=== PATIENT | male | born 1990 | race Caucasian/White ===

== ENCOUNTER 2018-03-17 15:20 | Emergency (ER) | payer SELFPAY ==
--- NOTE | 2018-03-17 16:53 | ED ---
GI/ HPI - HPI Summary HPI Summary: This pt is a 27 y/o male presenting to [facility] c/o intermittent abd pain and bloody stools for 1 year now. Pt reports that he has had blood with bowel movements, described as both bright red and dark brown. Denies fever, chills, chest pain, SOB, dizziness. He notes he was due to have a colonoscopy but ended up going to [facility]. Pt did have Crohns and colitis ruled out while in [facility]. He currently is in [facility] for [facility], he has been here for about 3 weeks. He notes he has not had alcohol since December 29, 2017. Denies drug use. He denies any PMHx. - History of Current Complaint Chief Complaint: EDAbdPain Time Seen by Provider: 03/17/18 16:45 Stated Complaint: ABD PAIN Hx Obtained From: Patient Onset/Duration: Started Weeks Ago, Still Present Timing: Intermittent, Lasting Weeks Current Severity: Moderate Pain Intensity: 7 Location of Pain: LUQ, LLQ Associated Signs and Symptoms: Positive: Bright Red Blood w/Stool, Blood w/Stool , Abdominal Pain. Negative: Dizziness, Nausea, Vomiting, Fever, Chills Aggravating Factor(s): Nothing Alleviating Factor(s): Nothing - Allergy/Home Medications Allergies/Adverse Reactions: Allergies Allergy/AdvReac Type Severity Reaction Status Date / Time No Known Allergies Allergy Verified 03/17/18 15:27 PMH/Surg Hx/FS Hx/Imm Hx Endocrine/Hematology History: Denies: Hx Diabetes Cardiovascular History: Denies: Hx Hypertension Psychiatric History: Reports: Hx Substance Abuse - Surgical History Surgery Procedure, Year, and Place: Knee surgery Infectious Disease History: No Infectious Disease History: Denies: Traveled Outside the [place] in Last 30 Days - Family History Known Family History: Negative: Cardiac Disease, Hypertension, Diabetes - Social History Alcohol Use: None Alcohol Amount: former alcoholic, last used on 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 GENERAL: Patient is a well-developed and nourished male who is lying comfortable in the stretcher. Patient is not in any acute respiratory distress. HEAD AND FACE: Normocephalic and atraumatic. EYES: PERRLA, EOMI x 2, No injected conjunctiva. EARS: Hearing grossly intact. Ear canals and tympanic membranes are WNL. MOUTH: Oropharynx within normal limits. NECK: Supple, trachea is midline, no adenopathy, no JVD. CHEST: Symmetric, no tenderness at palpation LUNGS: Clear to auscultation bilaterally. No wheezing or crackles. CVS: RRR, S1 and S2 present, no murmurs or gallops appreciated. ABDOMEN: Soft, left upper quadrant and left lower quadrant tenderness. No signs of distention. Positive bowel sounds. No rebound no guarding, and no masses palpated. No abdominal bruit or pulsations. EXTREMITIES: FROM in all major joints, no edema, no cyanosis or clubbing. RECTAL EXAM: CHELLE Plata, present as conical mixer. Normal sphincter tone. No gross blood or melena. NEURO: Alert and oriented x 3. No acute neurological deficits. Speech is normal. SKIN: Dry and warm Triage Information Reviewed: Yes Vital Signs On Initial Exam: Initial Vitals Temp Pulse Resp BP Pulse Ox 98.1 F 90 16 140/85 100 03/17/18 15:25 03/17/18 15:25 03/17/18 15:25 03/17/18 15:25 03/17/18 15:25 Vital Signs Reviewed: Yes Diagnostics - Vital Signs Vital Signs Temp Pulse Resp BP Pulse Ox 03/17/18 15:25 98.1 F 90 16 140/85 100 - Laboratory Result Diagrams: 03/17/18 16:51 03/17/18 16:51 Lab Statement: Any lab studies that have been ordered have been reviewed, and results considered in the medical decision making process. GIGU Course/Dx - Course Assessment/Plan: This pt is a 27 y/o male presenting to [facility] c/o intermittent abd pain and bloody stools for 1 year now. Pt reports that he has had blood with bowel movements, described as both bright red and dark brown. Denies fever , chills, chest pain, SOB, dizziness. He notes he was due to have a colonoscopy but ended up going to [facility]. Pt did have Crohns and colitis ruled out while in [facility]. He currently is in [facility] for [facility], he has been here for about 3 weeks. He notes he has not had alcohol since December 29, 2017. Denies drug use. He denies any PMHx. Blood work without any significant abnormality except for potassium level of 3.4. Guaiac test is negative. The patient is waiting for an abdominal/pelvic CT. At this point the patient will be signed out to Dr. Marques at shift change. He will follow up on the abdomen and pelvic CT report for further disposition of this patient. - Diagnoses Provider Diagnoses: Abdominal pain Discharge - Sign-Out/Discharge Documenting (check all that apply): Sign-Out Patient Signing out patient TO: Dorothy Marques - pending CT abdomen/pelvis - Discharge Plan Condition: Stable Disposition: HOME Referrals: [facility] – [place] [Outside] (2-3 days) Additional Instructions: Return to the ED if you experience any new or worsening symptoms. - Billing Disposition and Condition Condition: STABLE - Attestation Statements Document Initiated by Vickie: Yes Documenting Scribe: Tamara Gao Provider For Whom Vickie is Documenting (Include Credential): Sher Webb MD Scribe Attestation: Tamara Hoang scribed for Sher Webb MD on 03/18/18 at 0719. Scribe Documentation Reviewed: Yes Provider Attestation: The documentation as recorded by the Tamara sosa accurately reflects the service I personally performed and the decisions made by , Sher Webb MD Status of Scribe Document: Viewed
[2018-03-17 17:16] LABS: ABS Basophils 0 10^3/ul (0-0.2); ABS Eosinophils 0.1 10^3/ul (0-0.6); ABS Lymphocytes 2.6 10^3/ul (1.0-4.8); ABS Monocytes 0.9 10^3/ul (0-0.8); ABS Neutrophils 4.8 10^3/ul (1.5-7.7); ABS Nucleated RBC 0 10^3/ul; Eosinophil % 1.1 %; Hematocrit 45 % (42-52); Hemoglobin 15.7 g/dl (14.0-18.0); Lymphocyte % 31.1 %; Mean Corpuscular HGB Conc 35 g/dl (31-36); Mean Corpuscular Hemoglobin 31 pg (27-31); Mean Corpuscular Volume 90 fL (80-94); Mean Platelet Volume 7.8 fL (7.4-10.4); Nucleated Red Blood Cells % 0.1; Platelet Count 294 10^3/ul (150-450); Red Blood Count 5.03 10^6/ul (4.00-5.40); Red Cell Distribution Width 13 % (10.5-15); White Blood Count 8.4 10^3/ul (3.5-10.8)
[2018-03-17 17:42] LABS: ALT 15 U/L (7-52); AST 20 U/L (13-39); Albumin 4.8 g/dL (3.2-5.2); Albumin/Globulin Ratio 2.1 (1-3); Alkaline Phosphatase 74 U/L (34-104); Amylase 48 U/L (29-103); Anion Gap 6 mmol/L (2-11); BUN/Creatinine Ratio 11.7 (8-20); Blood Urea Nitrogen 11 mg/dL (6-24); C Reactive Protein < 1.00 mg/L (<8.01); CO2 Carbon Dioxide 31 mmol/L (22-32); Calcium 9.9 mg/dL (8.6-10.3); Chloride 103 mmol/L (101-111); Globulin 2.3 g/dL (2-4); Glucose 96 mg/dL (70-100); Potassium 3.4 mmol/L (3.5-5.0); Sodium 140 mmol/L (135-145); Total Protein 7.1 g/dL (6.4-8.9)
[2018-03-17] MEDS ORDERED: Iohexol 300* (CONTRAST) 10 ML SDV IV ONE (18:43)
--- NOTE | 2018-03-17 19:14 | ED ---
Progress - Progress Note Progress Note: This patient was signed out from Dr. Webb to Dr. Marques upon shift change at 19: 00 03/17/[address] abdomen/pelvis. CT abdomen/pelvis impression: no acute CT pathology. ED provider has reviewed this imaging report. The patient will be discharged. Re-Evaluation - Re-Evaluation First Eval Re-Evaluation Time: 20:18 Change: Improved Comment: Patient is feeling better. Course/Dx - Course Course Of Treatment: This patient was signed out from Dr. Webb to Dr. Marques upon shift change at 19:00 03/17/[address] abdomen/pelvis. CT abdomen/ pelvis impression: no acute CT pathology. ED provider has reviewed this imaging report. The patient will be discharged. - Diagnoses Provider Diagnoses: Abdominal pain Discharge - Sign-Out/Discharge Documenting (check all that apply): Patient Departure - DC, Receiving Sign-Out Receiving patient FROM: Sher Webb - Discharge Plan Condition: Stable Disposition: HOME Referrals: [facility] [place]Outside] (2-3 days) Additional Instructions: Return to the ED if you experience any new or worsening symptoms. - Billing Disposition and Condition Condition: STABLE Disposition: Home - Attestation Statements Document Initiated by Scribe: Yes Documenting Scribe: Andreas Dominguez Provider For Whom Vickie is Documenting (Include Credential): Dorothy Marques MD Scribe Attestation: Andreas Hoang scribed for Dorothy Marques MD on 03/18/18 at 0417. Scribe Documentation Reviewed: Yes Provider Attestation: The documentation as recorded by the Andreas sosa accurately reflects the service I personally performed and the decisions made by Jose Enrique coleman MD Status of Scribe Document: Viewed
[2018-03-17 19:45] VITALS: BP 134/87
== END 2018-03-17 20:34 | disposition home or self-care (01) ==
LOC: ED 15:20
DX: R10.9 Unspecified abdominal pain (principal)
CPT/HCPCS: 36415; 74177; 80053; 82150; 82270; 83605; 83690; 85025; 86140; 99282; Q9967

== ENCOUNTER 2018-04-17 03:11 | Observation (INO) | payer OTHER ==
[2018-04-17] MEDS ORDERED: NS 0.9% 1000 ML** 1,000 ML IV ONE (03:26)
[2018-04-17] MEDS ORDERED: Tetan/Diph/Pertus SYR(Tdap)* 0.5 ML SYR(BOOSTRIX) use SYR IM ONE (03:28)
--- OUTSIDE RECORDS SUMMARY | 2018-04-17 03:41 | XMS REPORT | Continuity of Care Document ---
:1990 External Reference #:[id number] Author Name Ale Abrams PA-C Address [address] [place] [address] [place] [address] Care Team Providers Name Role Phone Maddison Villagomez FNP Care Team Information Outside Machinist Supervisor Unavailable Lindsey Arevalo MD Primary Care Physician Unavailable Payers Date Identification Numbers Payment Provider Subscriber Policy Number: [id number] Berto Abad PayID: [id number] [address] [place] [phone] Advance Directives Description No Information Available Problems Date Description Provider Status Onset: 04/06/2018 Diarrhea Ale Abrams PA-C Active Onset: 04/06/2018 Abdominal pain Ale Abrams PA-C Active Onset: 04/06/2018 Periumbilical pain Ale Abrams PA-C Active Onset: 04/06/2018 Hemorrhage of rectum and anus Ale Abrams PA-C Active Family History Description No Information Available Social History Type Date Description Comments Sex Unknown ETOH Use Denies alcohol use currently in rehab. Prior binge drinker on the weekends Tobacco Use Start: Unknown End: Patient is a former Unknown smoker Smoking Status Reviewed: 04/06/18 Patient is a former smoker Allergies, Adverse Reactions, Alerts Description No Known Drug Allergies Medications Medication Date Status Form Strength Qnty SIG Indications Ordering Provider Trazodone HCL Active Tablets 50mg 1 Tablet Unknown 000 AT hs Prilosec OTC Active Tablets DR 20mg 1 by mouth Unknown 000 bid Colyte-Flavor Hx Solution 240gm 4000ml As K62.5 Ale [place] Packs 019 - Rec directed Jose Alberto, FRANCISCO JAVIER 019 Immunizations Description No Information Available Vital Signs Date Vital Result Comment 04/06/2018 7:54am Height 73 inches 6'1" Weight 178.00 lb BP Systolic 128 mmHg BP Diastolic 78 mmHg Heart Rate 88 /min BMI (Body Mass Index) 23.5 kg/m2 Results Test Date Facility Test Result H/L Range Note Xray 03/17/2018 [facility] [place], Abd & Pelvis W/ Contrast <pending> Procedures Description No Information Available Encounters Description No Information Available Plan of Treatment Future Appointment(s):04/30/2018 8:45 am - Lee Back DO at [facility]04/06/2018 - ANGELO Hong-CK62.5 Hemorrhage of anus and rectumNew Medication:Colyte-Flavor Packs 240 gm - As directedComments:RISKS AND BENEFITS OF THE PROCEDURE WERE DISCUSSED WITH PATIENT.R10.33 Periumbilical painR10.30 Lower abdominal pain, gefosrxgvloL35.7 Diarrhea, unspecified
--- NOTE | 2018-04-17 03:45 | ED ---
Syncope/Near Syncope - HPI Summary HPI Summary: This patient is a 27 year old male brought in by ambulance to [facility] with a chief complaint of syncope since 1-2 hours ago. Patient states that he woke up from sleeping to go to the bathroom. After he was done urinating, patients states that he developed a headache and passed out soon after. After regaining consciousness, patient attempted to go to the sink to wash up when he passed out again. Patient states that he does not remember the events directly prior and following the syncopal event. Patient affirms head trauma and LOC. Patient also presents with a small gash on his left shoulder. The pain is rated 3/10 in severity. Symptoms aggravated by nothing. Symptoms alleviated by nothing. Patient additionally reports headache. - History Of Current Complaint Time Seen by Provider: 04/17/18 03:12 Hx Obtained From: Patient Onset/Duration: Sudden Onset, Lasting Minutes, Still Present Timing: Intermittent Episode Lasting Context: Unwitnessed, Witnessed, Loss Of Consciousness Activity At Onset: At Rest Associated Head Trauma: Yes Aggravating Factor(s): Nothing Alleviating Factor(s): Nothing Associated Signs And Symptoms: Dizzy, Headache - Allergies/Home Medications Allergies/Adverse Reactions: Allergies Allergy/AdvReac Type Severity Reaction Status Date / Time No Known Allergies Allergy Verified 03/17/18 15:27 PMH/Surg Hx/FS Hx/Imm Hx Previously Healthy: Yes Endocrine/Hematology History: Denies: Hx Diabetes Cardiovascular History: Denies: Hx Hypertension History: Denies: Hx Renal Disease Psychiatric History: Reports: Hx Substance Abuse - Surgical History Surgery Procedure, Year, and Place: Knee surgery Infectious Disease History: Denies: Traveled Outside the [place] in Last 30 Days - Family History Known Family History: Negative: Cardiac Disease, Hypertension, Diabetes - Social History Occupation: Employed Part-time, Student Alcohol Use: None Alcohol Amount: former alcoholic, last used on 12/29/17 Hx Substance Use: No Substance Use Type: Reports: None Hx Tobacco Use: No Smoking Status (MU): Never Smoked Tobacco Review of Systems Negative: Fever Positive: Other - small laceration on left shoulder Positive: Headache, Syncope All Other Systems Reviewed And Are Negative: Yes Physical Exam - Summary Physical Exam Summary: VITAL SIGNS: Reviewed. GENERAL: Patient is a well-developed and nourished male who is lying comfortable in the stretcher. Patient is not in any acute respiratory distress. HEAD AND FACE: No signs of trauma. No ecchymosis, hematomas or skull depressions. No sinus tenderness. EYES: PERRLA, EOMI x 2, No injected conjunctiva, no nystagmus. EARS: Hearing grossly intact. Ear canals and tympanic membranes are within normal limits. MOUTH: Oropharynx within normal limits. NECK: Supple, trachea is midline, no adenopathy, no JVD, no carotid bruit, no c- spine tenderness, neck with full ROM. CHEST: Symmetric, no tenderness at palpation LUNGS: Clear to auscultation bilaterally. No wheezing or crackles. CVS: Regular rate, irregular rhythm, S1 and S2 present, no murmurs or gallops appreciated. ABDOMEN: Soft, non-tender. No signs of distention. No rebound no guarding, and no masses palpated. Bowel sounds are normal. EXTREMITIES: FROM in all major joints, 1 inch lac over left shoulder anteriorly NEURO: Alert and oriented x 3. No acute neurological deficits. Speech is normal and follows commands. SKIN: Dry and warm Triage Information Reviewed: Yes Vital Signs Reviewed: Yes Procedures - Laceration/Wound Repair 1 Location: chest - left Anesthesia: 2.0%, Lido Length, Depth and Shape: 1 inch lac over left shoulder anteriorly Betadine Prep?: Yes Irrigated w/ Saline (ccs): 20 Laceration/Wound Explored: clean Closure: Single Layer Debridement: moderate Suture Type: Prolene Number of Sutures: 4 Layer Closure?: No Sterile Dressing Applied?: Yes Diagnostics - Laboratory Result Diagrams: 04/17/18 03:47 04/17/18 03:47 Lab Statement: Any lab studies that have been ordered have been reviewed, and results considered in the medical decision making process. - CT CT Brain CT Interpretation Completed By: Radiologist Summary of CT Findings: CT Brain reveals, per radiologist, IMPRESSION: No acute intracranial abnormality. ED physician has reviewed this radiology report. - EKG 033 Cardiac Rate: Other Rate EKG Rhythm: Atrial Flutter - 67 BPM Summary of EKG Findings: An EKG, taken 033, reveals Atrial flutter (67 BPM), no acute ischemic changes. Course/Dx Course Of Treatment: This patient is a 27 year old male brought in by ambulance to [facility] with a chief complaint of syncope since 1-2 hours ago. Patient states that he woke up from sleeping to go to the bathroom. After he was done urinating , patients states that he developed a headache and passed out soon after. After regaining consciousness, patient attempted to go to the sink to wash up when he passed out again. Patient states that he does not remember the events directly prior and following the syncopal event. An EKG, taken 033, reveals Atrial flutter (67 BPM), no acute ischemic changes.CT Brain reveals, per radiologist, IMPRESSION: No acute intracranial abnormality. ED physician has reviewed this radiology report. Bloodwork Obtained. Urinalysis Obtained. In the ED course the patient was given NS 0.9%, Tetanus titer. We discussed patient care with Dr. Silva (Hospitalist) at 0445, who agreed to admit the patient. Patient will be admitted with new onset a fib and syncope. The patient is agreeable with this plan. - Diagnoses Provider Diagnoses: New onset atrial fibrillation, Syncope - Physician Notifications Discussed Care of Patient With: Jo Silva - Hospitalist Time Discussed With Above Provider: 04:45 - We discussed patient care with Dr. Silva (Hospitalist) at 0445, who agreed to admit the patient. Instructed by Provider To: Admit As Inpatient Discharge - Sign-Out/Discharge Documenting (check all that apply): Patient Departure Patient Received Moderate/Deep Sedation with Procedure: No - Discharge Plan Condition: Stable Disposition: ADMITTED TO [facility] Referrals: No Primary Care Phys,NOPCP [Primary Care Provider] - - Attestation Statements Document Initiated by Scribe: Yes Documenting Scribe: Annamarie Trujillo Provider For Whom Scribe is Documenting (Include Credential): Dorothy Marques MD Scribe Attestation: Annamarie Hoang, scribed for Dorothy Marques MD on 04/17/18 at 0532. Status of Scribe Document: Ready
[2018-04-17 03:54] LABS: ABS Basophils 0.1 10^3/ul (0-0.2); ABS Eosinophils 0.3 10^3/ul (0-0.6); ABS Lymphocytes 3.3 10^3/ul (1.0-4.8); ABS Monocytes 0.9 10^3/ul (0-0.8); ABS Neutrophils 3.9 10^3/ul (1.5-7.7); ABS Nucleated RBC 0 10^3/ul; Hematocrit 46 % (42-52); Hemoglobin 15.5 g/dl (14.0-18.0); Lymphocyte % 38.7 %; Mean Corpuscular HGB Conc 34 g/dl (31-36); Mean Corpuscular Hemoglobin 31 pg (27-31); Mean Corpuscular Volume 92 fL (80-94); Mean Platelet Volume 8.2 fL (7.4-10.4); Nucleated Red Blood Cells % 0; Platelet Count 260 10^3/ul (150-450); Red Blood Count 4.96 10^6/ul (4.00-5.40); Red Cell Distribution Width 13 % (10.5-15); White Blood Count 8.4 10^3/ul (3.5-10.8)
[2018-04-17 04:03] LABS: Activated Partial Thrombo Time 24.2 seconds (26.0-36.3); INR 0.93 (0.77-1.02)
[2018-04-17 04:10] LABS: ALT 22 U/L (7-52); AST 16 U/L (13-39); Albumin 4.6 g/dL (3.2-5.2); Albumin/Globulin Ratio 1.8 (1-3); Alkaline Phosphatase 68 U/L (34-104); Anion Gap 5 mmol/L (2-11); BUN/Creatinine Ratio 10.4 (8-20); Blood Urea Nitrogen 10 mg/dL (6-24); CO2 Carbon Dioxide 31 mmol/L (22-32); Calcium 9.5 mg/dL (8.6-10.3); Chloride 103 mmol/L (101-111); EGFR African American 114.6 (>60); EGFR Non-African American 94.7 (>60); Globulin 2.5 g/dL (2-4); Glucose 106 mg/dL (70-100); Magnesium 2.3 mg/dL (1.9-2.7); Potassium 3.7 mmol/L (3.5-5.0); Sodium 139 mmol/L (135-145); Total Protein 7.1 g/dL (6.4-8.9)
[2018-04-17 04:14] LABS: Alcohol < 10 mg/dL (<10)
[2018-04-17 04:30] LABS: TSH (Thyroid Stimulating Horm) 2.45 mcIU/mL (0.34-5.60)
[2018-04-17] MEDS ORDERED: Ondansetron INJ* 2 MG/ML VIAL IV PRN (05:24)
[2018-04-17] MEDS ORDERED: Al Hydrox/Mg Hydrox/Simet LIQ* 30 ML UDC PO PRN (05:24)
[2018-04-17] MEDS ORDERED: Acetaminophen TAB* 325 MG PO PRN (05:24)
[2018-04-17] MEDS ORDERED: traZODone TAB* 50 MG TAB PO PRN (05:28)
[2018-04-17] MEDS ORDERED: hydrOXYzine HCL TAB* 50 MG PO PRN (05:29)
[2018-04-17] MEDS ORDERED: Iohexol 350* (CONTRAST) 500 ML MDV IV ONE (07:02)
[2018-04-17 07:31] LABS: Urine Appearance Clear; Urine Bilirubin Negative (Negative); Urine Blood Negative (Negative); Urine Color Straw; Urine Glucose Negative (Negative); Urine Ketones Negative (Negative); Urine Nitrite Negative (Negative); Urine Protein Negative (Negative); Urine Specific Gravity 1.004 (1.010-1.030); Urine Urobilinogen Negative (Negative)
[2018-04-17 07:47] LABS: Barbiturates Urine Screen None Detected (None Detect); Benzodiazepine Urine Screen None Detected (None Detect); Urine Cannabinoids Screen None Detected (None Detect)
[2018-04-17] MEDS ORDERED: Pantoprazole TAB * 40 MG TAB PO SCH (09:00)
--- NOTE | 2018-04-17 09:15 | HP ---
HISTORY AND PHYSICAL: DATE OF ADMISSION: 04/17/18 TIME OF EVALUATION: 0500 PRIMARY CARE PHYSICIAN: The patient does not have a primary care physician. CHIEF COMPLAINT: Syncope. HISTORY OF PRESENT ILLNESS: This is a 27-year-old male with an unremarkable past medical history who presented to the emergency room from [facility] facility for 2 episodes of syncope. Patient states he was in his usual state of health. He went to get up to go pee. While he was peeing, he developed a headache, dizzy, lightheaded and he woke up and found himself on the floor. When he got up, he went to go wash his hands and again, he had another syncopal episode. Patient came into the emergency room for further evaluation. He injured his head and his right arm has a laceration. He denies any chest pain. No shortness of breath, no palpitations. He states he had a head cold recently. No fevers. He denies any history of syncope in the past. He is at [facility] for alcohol abuse. He states he started drinking when he was 13 years of age, but he has not drank since December 2017. He drinks about 3 cups of coffee per day. No illicit drug use. New Medications: He was recently started on trazodone on 03/21. Also of note, patient states about 3 weeks ago, he was having bloody stools. He saw GI and is scheduled to have a colonoscopy on 04/30/18. The bloody stools have resolved from 3 weeks ago and he does get intermittent abdominal pain, but he has had normal stools for the past 3 weeks. Patient denies any nausea or vomiting. He states he has had a good appetite. Otherwise , review of systems is negative. In the emergency room, patient had labs, imaging. He was found to be in rate-controlled AFib. He was given a Tdap, 1 L of fluid, and referred to the hospitalist service for further evaluation. PAST MEDICAL HISTORY: 1. History of alcohol abuse. 2. GERD. MEDICATIONS: 1. Vivitrol 380 mg IM monthly. 2. Vistaril 50 mg p.o. t.i.d. as needed for anxiety. 3. Omeprazole 40 mg p.o. daily. ALLERGIES: No known drug allergies. FAMILY HISTORY: Parents are alive and healthy. He thinks his mother may have some heart problems, but he is not sure. SOCIAL HISTORY: Patient has been at [facility] Facility since February 27 and plan for discharge is 05/01/18. Prior to [facility], he was incarcerated from 01/02/18 to 02/27/18. He has not smoked since January; at that time, he was smoking less than a pack per day. As mentioned, history of alcohol use since he was 13 years of age. No illicit drug use. He normally lives with his mother, who is his healthcare proxy. REVIEW OF SYSTEMS: A 14-point review of systems as mentioned in the HPI; otherwise, negative. PHYSICAL EXAMINATION GENERAL: No acute distress, resting comfortably. VITAL SIGNS: Temp 97.9, pulse 70, respiratory rate 15, oxygen saturation 100% on room air, blood pressure 132/82. HEENT: Head normocephalic. Pupils are equal and reactive. Anicteric. Oropharynx: Mucous membranes are moist. NECK: Supple. No adenopathy. RESPIRATORY: Clear to auscultation. No wheezes, rhonchi, or rales. CARDIAC: Irregularly irregular rate and rhythm. Soft systolic murmur heard throughout. ABDOMEN: Soft, nontender, nondistended. EXTREMITIES: No clubbing, cyanosis, or edema; +2 DPs. NEUROLOGIC: Alert and oriented x3. No gross focal neurologic deficits. DERM: Patient has a 4 cm laceration on his right shoulder. DIAGNOSTIC STUDIES/LAB DATA: Head CT shows no acute intracranial abnormality. EKG shows atrial fibrillation with a rate of 67. ASSESSMENT: This is a 27-year-old male with a history of alcohol abuse who presents to the emergency room with 2 syncopal episodes, found to be in atrial fibrillation. 1. Syncope. Assessment: This could be micturition syncope, though it is concerning that he has atrial fibrillation at age 27. It is possible that he has always had underlying atrial fibrillation with his history of alcohol use. I have no EKG to compare to. His trop is negative. His vitals are normal. He denies any chest pain, which is essentially low risk for a pulmonary embolism, but it is certainly on the differential. Plan: We will admit him to telemetry for observation. We will obtain an echocardiogram. Check orthostatics. We will check a D-dimer. If it is tolerated, we will pursue CTA. Continue to trend troponins. Going to consult cardiology regarding workup for further management of his atrial fibrillation. He is currently rate controlled. He is supposed to get a colonoscopy for history of bloody stools. He has a normal H and H. We will touch base with him regarding further management to see if he may be a candidate for cardioversion despite being rate controlled. He is young to stay in atrial fibrillation. His atrial fibrillation could be related to his alcohol use. 2. Chronic medical problems: We will resume his omeprazole and his Vistaril. 3. FEN. Awaiting to hear back from cardiology to determine if he would be a cardioversion candidate today. If he is, we will keep him n.p.o. If not, we will place him on a regular diet. 4. DVT prophylaxis. Patient scores a 1, low risk. We will encourage ambulation. 5. Code status. Full code. PATIENT TIME: Greater than 40 minutes were spent doing the history and physical , more than half the time spent in direct patient contact. [id number] #: [id number] JENNIFER
[2018-04-17 10:15] VITALS: BP 133/74
--- NOTE | 2018-04-17 13:27 | ECHO ---
Patient: COLLINS RODRIGUEZ [facility] Rec#: [id number] : 1990 Date: 04/17/2018 Age: 27y Height: 175 cm / 68.9 in Weight: 81.6 kg / 179.8 lbs Sex: M BSA: 1.97 Room#: [facility] Admit Date#: 04/17/2018 Type: Inpatient Referring: Jo Silva Reading: Rashad Corea DO Storeroom Supervisor: Jocelyne Lerma RDCS Transthoracic Echocardiogram Indication: Syncope BP: 105/48 HR: 65 Rhythm: NSR Findings History: ETOH use. Technical Comments: The study quality is good. Completed at 1220. Left Ventricle: The left ventricular chamber size is normal. There is no left ventricular hypertrophy. Global left ventricular wall motion and contractility are within normal limits. There is normal left ventricular systolic function. The estimated ejection fraction is 55-60%. Normal left ventricular diastolic filling is observed. Left Atrium: The left atrial chamber size is normal. Right Ventricle: The right ventricular chamber size and systolic function are within normal limits. Right Atrium: The right atrial cavity size is normal. Aortic Valve: The aortic valve is trileaflet. There is no evidence of aortic valve thickening. There is no evidence of aortic regurgitation. There is no evidence of aortic stenosis. Mitral Valve: The mitral valve leaflets do not appear thickened. There is a trace of mitral regurgitation. There is no evidence of mitral stenosis. Tricuspid Valve: The tricuspid valve leaflets are normal. There is a physiologic tricuspid regurgitation. Unable to estimate the right ventricular systolic pressure. There is no tricuspid stenosis. Pulmonic Valve: The pulmonic valve appears normal. There is a trace pulmonic regurgitation. There is no pulmonic stenosis. Pericardium: There is no significant pericardial effusion. Aorta: There is no dilatation of the ascending aorta. There is no dilatation of the aortic arch. The aortic root is normal in size. Pulmonary Artery: The main pulmonary artery is not well visualized. Venous: The inferior vena cava appears normal in size. There is a greater than 50% respiratory change in the inferior vena cava dimension. Conclusions The left ventricular chamber size is normal. There is no left ventricular hypertrophy. Global left ventricular wall motion and contractility are within normal limits. There is normal left ventricular systolic function. The estimated ejection fraction is 55-60%. The left atrial chamber size is normal. The right ventricular chamber size and systolic function are within normal limits. No significant valvular abnormalities noted None prior for comparison at time of interpretation. Measurements Name Value Normal Range RVIDd (AP) 2D 2.6 cm (0.9 - 2.6) RVDdMajor (2D) 4 cm (2.2 - 4.4) RAd ISD 4CH 4.4 cm (3.4 - 4.9) RA (A4C)W 4 cm (2.9 - 4.6) IVSd (2D) 1 cm (0.6 - 1) LVPWd (2D) 1 cm (0.6 - 1) LVIDd (2D) 4.5 cm (3.6 - 5.4) LVIDs (2D) 2.8 cm - LV FS (2D) 38 % (25 - 45) Aortic Annulus 2.3 cm (1.4 - 2.6) Ao root diameter (2D) 3 cm (2.1 - 3.5) Ascending Ao 2.8 cm (2.1 - 3.4) Aortic arch 2 cm (1.8 - 3.4) LA dimension (AP) 2D 3.2 cm (2.3 - 3.8) LAd ISD 4CH 5 cm (2.9 - 5.3) LA ISD 4CH W 4 cm (2.5 - 4.5) Name Value Normal Range LA ESV BP (A/L) index 25 ml/m2 - Name Value Normal Range MV E-wave Vmax 0.6 m/sec - MV deceleration time 225 msec - MV A-wave Vmax 0.4 m/sec - MV E:A ratio 1.6 ratio - LV septal e' Vmax 0.11 m/sec - LV lateral e' Vmax 0.17 m/sec - LV E:e' septal ratio 5.5 ratio - LV E:e' lateral ratio 3.5 ratio - Name Value Normal Range AV Vmax 1.2 m/sec - AV VTI 21 cm - AV peak gradient 5 mmHg - AV mean gradient 3 mmHg - LVOT Vmax 1 m/sec - LVOT VTI 19 cm - LVOT peak gradient 4 mmHg - LVOT mean gradient 2 mmHg - PANKAJ Vmax 1.2 m/sec - Name Value Normal Range IVC diameter 1.7 cm - Name Value Normal Range PV Vmax 0.9 m/sec - PV peak gradient 3 mmHg -
--- NOTE | 2018-04-17 14:54 | CONSULT ---
Subjective Date of Service: 04/17/18 Interval History: Admission and Consult Date: 04/17/18 Provider: Hospitalist service PRIMARY CARE PHYSICIAN: [facility] CHIEF COMPLAINT: Syncope Reason for consult: Syncope, atrial fibrillation HISTORY OF PRESENT ILLNESS: Yinka Abad is a 27-year-old man with only history being prior alcohol abuse now in remission. He had one episode before where he had an LOC episode while urinating in the middle of the night. He has been at his baseline healthy status. He had viral infection last week but recovered. Otherwise has been healthy. He got up in the middle of the night to urinate. While urinating he felt headache, dizzy and lightheaded. He woke up on the floor. He got up to wash his hands and had another LOC episode. He was found with atrial fibrillation with normal ventricular rates. He spontaneously converted to sinus rhythm. He felt no different before or after spontaneous conversion. He has no CP, dyspnea, edema. He has had some bloody stools and intermittent abdomen pain and is planned to have a c-scope 04/30. PAST MEDICAL HISTORY: 1. History of alcohol abuse in remission 2. GERD. ALLERGIES: No known drug allergies. FAMILY HISTORY: Mother has heart issues, uncertain details SOCIAL HISTORY: Patient has been at [facility] since February 27 and plan for discharge is 05/01/18. Prior to [facility], he was incarcerated from 01/02/18 to 02/27/18. He has not smoked since January; at that time, he was smoking less than a pack per day. As mentioned, history of alcohol use since he was 13 years of age. No illicit drug use. He normally lives with his mother, who is his healthcare proxy. Medications Active Medications: Acetaminophen (Tylenol Tab*) 650 mg PO Q4H PRN PRN Reason: FEVER/PAIN Al Hydrox/Mg Hydrox/Simethicone (Maalox Plus*) 30 ml PO Q6H PRN PRN Reason: INDIGESTION Hydroxyzine HCl (Atarax Tab*) 50 mg PO Q8H PRN PRN Reason: ANXIETY Ondansetron HCl (Zofran Inj*) 4 mg IV Q4H PRN PRN Reason: NAUSEA/VOMITING Pantoprazole Sodium (Protonix Tab*) 40 mg PO DAILY [facility] Last Admin: 04/17/18 07:28 Dose: 40 mg Trazodone HCl (Desyrel Tab*) 50 mg PO BEDTIME PRN PRN Reason: SLEEP Home Medications: Pantoprazole TAB * [Protonix TAB*] 40 mg PO DAILY 04/17/18 [History Confirmed ] traZODone TAB* [Desyrel TAB*] 50 mg PO BEDTIME PRN 04/17/18 [History Confirmed 04/17/18] Review of Systems - Measurements Intake and Output: Intake and Output Last 24 Hours 04/15/18 04/16/18 04/17/18 04/18/18 06:59 06:59 06:59 06:59 Intake Total 1000 Balance 1000 Weight 180 lb 180 lb Intake: IV Fluids 1000 - Review of Systems Constitutional Symptoms: Negative: Weight Gain, Weight Loss Dermatology: Negative: Rash, Skin Lesions HEENT: Negative: Change in Hearing, Vertigo Eyes: Negative: Change in Vision, Double Vision Thyroid: Negative: Cold Intolerance, Heat Intolerance, Weight Loss, Weight Gain Pulmonary: Negative: Cough, Sputum, Hemoptysis, Respiratory Distress, Shortness of Breath, Exercise Intolerance Cardiology: Positive: Faintness, Syncope Negative: Chest Pain, Shortness of Breath, Palpitations, Swelling of Ankles, Peripheral Vascular Dis, Edema, Claudication, Paroxysmal Nocturnal Dyspnea, Orthopnea Gastroenterology: Positive: Abdominal Pain Genital - Urinary: Negative: Dysuria, Hematuria Musculoskeletal: Negative: Joint Pain, Joint Stiffness Endocrinology: Negative: Obesity, Diabetes Hematologic/Lymphatic: Negative: Anemia, Hx Leukemia, Hx Lymphoma, Use of Anticoagulant, Use of Antiplatelet Drugs Neurology: Negative: Diplopia, Dizziness, Change in Speech, Change in Sphincter Function , Unexplained Weakness, Hx of Stroke\TIA Psychiatry: Negative: Unusual Anxiety, Suicidal Ideation Allergic/Immunologic: Negative: Hx HIV, Immunocompromise Review of Systems Statement: All other review of systems negative, unless stated above. Objective Vital Signs: Temp Pulse Resp BP Pulse Ox 97.4 F 107 16 133/74 99 04/17/18 10:00 04/17/18 11:47 04/17/18 10:00 04/17/18 10:00 04/17/18 10:00 Oxygen Devices in Use Now: None Appearance: nad, pleasant Ears/Nose/Mouth/Throat: Clear Oropharnyx, Mucous Membranes Moist Neck: NL Appearance and Movements; NL JVP, Trachea Midline Respiratory: Symmetrical Chest Expansion and Respiratory Effort, Clear to Auscultation Cardiovascular: NL Sounds; No Murmurs; No JVD, RRR, No Edema Abdominal: NL Sounds; No Tenderness; No Distention Extremities: No Edema Skin: No Rash or Ulcers Neurological: Alert and Oriented x 3 Laboratory Results: 04/17/18 03:47 04/17/18 03:47 INR (Anticoag Therapy) 0.93 (0.77-1.02) 04/17/18 03:47 APTT 24.2 seconds (26.0-36.3) L 04/17/18 03:47 Total Bilirubin 0.40 mg/dL (0.2-1.0) 04/17/18 03:47 AST 16 U/L (13-39) 04/17/18 03:47 ALT 22 U/L (7-52) 04/17/18 03:47 Alkaline Phosphatase 68 U/L (34-104) 04/17/18 03:47 Total Protein 7.1 g/dL (6.4-8.9) 04/17/18 03:47 Albumin 4.6 g/dL (3.2-5.2) 04/17/18 03:47 Globulin 2.5 g/dL (2-4) 04/17/18 03:47 Albumin/Globulin Ratio 1.8 (1-3) 04/17/18 03:47 TSH 2.45 mcIU/mL (0.34-5.60) 04/17/18 03:47 04/17/18 04/17/18 03:47 07:14 Troponin I 0.00 0.00 mg 2.1 toxicology screen and serum alcohol negative Diagnostic Imaging: DIAGNOSTIC STUDIES this admission Head CT shows no acute intracranial abnormality. CT 04/17/2018: No PE, lungs clear Echo 04/17/2018: Normal echocardiogram, LVEF 55-60% EKG Data: 04/17/2018 EKG 1: Coarse Afib rate 67 bpm, minimal early repolarization pattern ( unremarkable) EKG 2: Coarse Afib rate 91 bpm EKG 3: NSR 80 bpm, unremarkable ekg Assessment/Plan 1. Micturition syncope 2. Vagal mediated atrial fibrillation, chads2-vasc score 0 - resolved - structurally normal heart by echo - secondary to #1 3. Alcohol abuse in remission - Would give full dose aspirin for 1 month, if any increase of rectal bleeding can discontinue - Patient advised to sit while urinating at night or first thing in morning - Ok to proceed with colonoscopy as previously scheduled. Thank you for allowing me to participate in the cardiovascular care of this patient. Please do not hesitate to contact me with questions or concerns.
--- NOTE | 2018-04-17 23:33 | DS ---
AMENDED REPORT NOW INCLUDES COSIGNER DESIGNATION CC: Rashad Corea, DO * DISCHARGE SUMMARY: DATE OF ADMISSION: 04/17/18 DATE OF DISCHARGE: 04/17/18 ATTENDING PROVIDER: Dr. Silva * (DICTATED BY ARTURO GUZMAN, MADDIE) HOSPITAL COURSE: Please refer to the admission H and P from this morning, but in short, this is a 27-year-old male patient who is a resident of [facility] for alcoholic detoxification. Patient states he woke up in the middle of the night to urinate, and while urinating, he felt lightheaded and syncopized. He states he does not know how long he was on floor for but when he got back up again to rinse his face, he syncopized again, sustaining a laceration on the left shoulder. At that point, EMS was called and he came to the emergency department for evaluation. Also of note, the patient does have some GI history and has been having bloody stools. He is scheduled for colonoscopy at the end of this month. Otherwise, he has no further pertinent medical history. The patient was found to be in atrial fibrillation; however, he had a controlled rate. He was seen by Dr. Rashad Corea from Cardiology. The patient did spontaneously convert prior to coming up to the floor from the ED. He had a structurally normal echocardiogram of the heart and likely a micturition syncope. Dr. Corea felt that likely he had a vagal-mediated AFib rather than more organic etiology. Dr. Corea recommended aspirin at discharge and cleared the patient for discharge back to [facility]. DISCHARGE DIAGNOSES: 1. Micturition syncope. 2. Vagal-mediated atrial fibrillation, currently resolved. 3. History of alcohol abuse, now in remission. DISCHARGE MEDICATIONS: Include: 1. Full-dose aspirin 325 mg one tablet daily for 30 days. This can be evaluated by GI if he continues to have bloody stools. 2. Protonix 40 mg p.o. daily. 3. Trazodone 50 mg p.o. at bedtime. REVIEW OF SYSTEMS: On the day of discharge, the patient denies any fever, fatigue or chills. No headache, no shortness of breath, no palpitations, no dizziness, no further syncope. No abdominal pain, no nausea, no vomiting, and no further constitutional complaints. PHYSICAL EXAMINATION: Vital Signs: Blood pressure 121/72, heart rate 88, O2 saturation 99% on room air with temperature 97.4. HEENT: The patient is atraumatic, normocephalic. PERRLA with nonicteric sclerae. Oral mucosa is moist. Tongue is midline. Neck is supple and nontender. No JVD noted. No carotid bruit auscultated. Cardiovascular: S1, S2 present. Rhythm is currently regular. Rate is regular. No murmurs, gallops, or rubs noted. Currently regular sinus rhythm on telemetry. Lungs: Clear bilaterally to auscultation with no wheezing, rhonchi or rales. He has a laceration that has been sutured on the left shoulder. No active bleeding noted. Abdomen: Soft, nontender, nondistended. Positive bowel sounds in all four quadrants. : Deferred. Musculoskeletal: There is no clubbing, no cyanosis, and no edema. + 2 distal pulses palpable. Full range of motion and steady gait. LABORATORY DATA AND IMAGING STUDIES: WBCs 8.4, RBCs 4.96, hematocrit 46, hemoglobin 15.5, platelets 260. Sodium 139, potassium 3.7, chloride 103, CO2 31 , BUN 10, creatinine 0.96, GFR 94.7, calcium 9.5, magnesium 2.3. LFT's normal. Troponin's were negative at 0.00 and 0.00. TSH was 2.45. Urinalysis was negative for any acute infected process. Urine toxicology screening was negative for any illicit drugs. INR was 0.93. CTA of chest at admission has showed no PE, did show his main pulmonary artery is larger than the aorta at the same level, which can be seen with pulmonary arterial hypertension. Echocardiogram also dated, 04/17/18, showed LV size is normal. No LV hypertrophy. Global left ventricular wall motion and contractility are within normal limits. Normal left ventricular systolic function. EF is 55% to 60%. Left atrial chamber size is normal. Right ventricular chamber size and systolic function are within normal limits. No significant valvular abnormalities are noted. DISPOSITION: The patient was discharged back to [facility]. MEDICATIONS AT DISCHARGE: As above as per recommendations by Dr. Corea. FOLLOWUP: The patient was instructed to follow up with the clinicians at [facility]. We also told him he can follow up at [facility] after discharge from [facility] at the beginning of next month if he so choses. The patient was told to return to the emergency department if he had any further issues with palpitations, fast heart rate, or obviously syncope again. The patient should follow up with Dr. Corea as well as an outpatient if this is a persistent continuing problem. The patient was discharged in stable condition. All questions were answered. The patient stated his understanding of this discharge diagnoses and followups. ARTURO GUZMAN NP [id number]/CPS #: [id number] JENNIFER
== END 2018-04-17 18:00 ==
LOC: ED 03:11 → EDHOLD 05:24 → MEDTELE 10:08
PROVIDERS: ADMIT Pediatrics; ATTEND Pediatrics
DX: R55 Syncope and collapse (principal); S41.012A Laceration without foreign body of left shoulder, initial encounter; I48.91 Unspecified atrial fibrillation; F10.11 Alcohol abuse, in remission; Z79.82 Long term (current) use of aspirin; R42 Dizziness and giddiness; W19.XXXA Unspecified fall, initial encounter; Y92.9 Unspecified place or not applicable
CPT/HCPCS: 12001; 36415; 70450; 71275; 80053; 80307; 80320; 81003; 83735; 84443; 84484; 85025; 85379; 85610; 85730; 90471; 90715; 93005; 93306; 96374; 99284; A9270-GY; G0378; G0480; Q9967